=== PATIENT | female | born 1950 | race Caucasian/White ===

== ENCOUNTER 2025-06-08 09:49 | Inpatient (IN) | payer MEDICARE, SELFPAY ==
[2025-06-08] VITALS (21 sets, daily range): BP systolic 98–162; BP diastolic 66–123; BMI 29.6
[2025-06-08 04:50] LABS: Hematocrit 38.5 % (37.0-47.0); Hemoglobin 13.0 g/dL (12.0-16.0); Mean Corp Hgb Conc. 33.8 g/dL (33.0-37.0); Mean Corpuscular Volume 96.0 fL (81.0-99.0); Nucleated Red Blood Cells % 0 %; Platelet Count 252 10^3/uL (130-400); Red Cell Dist. Width 12.8 % (11.5-14.5)
[2025-06-08 05:13] LABS: ALT (SGPT) 26 U/L (0-35); AST (SGOT) 27 U/L (14-36); Albumin 4.4 g/dl (3.5-5.0); Alkaline Phosphatase 81 U/L (38-126); Blood Urea Nitrogen 22 mg/dl (7-17); Calcium 9.9 mg/dl (8.4-10.2); Carbon Dioxide 27 mmol/L (22-30); Chloride 108 mmol/L (98-107); Estimated Creatinine Clearance 86 ml/min; Glucose 102 mg/dl (70-99); Potassium 4.3 mmol/L (3.5-5.1); Sodium 138 mmol/L (135-145); Total Protein 7.0 g/dl (6.3-8.2); eGFR > 60.00
--- NOTE | 2025-06-08 05:29 | ED.GENMED ---
History of Present Illness
General
Chief Complaint: Fall
Source: patient, spouse and ambulance crew
Exam Limitations: none
Time Seen by Provider: 06/08/25 04:08
Nursing documentation reviewed up to this point in time: agreed with
History of Present Illness
History of Present Illness:
This is a 74-year-old woman who resides at home with her . She inadvertently rolled out of bed tonight landing on her left side injuring her left hip. Complains of severe pain left hip, unable to get up or move related to severe left hip
pain. She denies head injury, denies loss of consciousness.
She has history of cervical myelopathy with intermittent cramping of left upper extremity, ambulates with a cane but generally can move about without difficulty and continues to walk her dog on a regular basis. She was planning to undergo cervical
spine surgery within the next 2 months but this has not been scheduled as yet.
She takes no anticoagulants.
She has history of low blood pressure, maintained on midodrine 2.5 mg twice daily.
She was given Tylenol 650 mg prehospital.
Patient reports adverse reaction to opioid medications causing significant nausea.
Past History
Past History
ED Past Medical History: Hypercholesterolemia and Other (Cervical and lumbar DJD. Cervical myelopathy. Hypotension.)
ED Past Surgical History: Orthopedic (Left ankle fracture repair. Lumbar spine surgery 2019.)
Social History
Tobacco: Non-smoker
Alcohol: None
Personal:
Living: with family
Employment: Retired
Family History
Family History: Other (Noncontributory)
Phy Exam
Physical Exam
Physical Exam:
GENERAL: 74-year-old woman appears her stated age, awake and alert, pleasant, appears in no acute distress. is accompanying.
EYE: The head is normocephalic, atraumatic. Pupils equal and reactive. anicteric
NECK: Supple, nontender, no meningismus, no significant adenopathy.
ENT: oral mucosa is moist. No rhinorrhea.
CARDIAC: Regular rate and rhythm. no murmur. No chest wall tenderness.
LUNGS: Clear breath sounds bilaterally, no acute respiratory distress, no wheezes/rales/rhonchi
ABDOMEN: Soft, nondistended, without focal tenderness, no r/g, normoactive BS.
BACK: No midline bony tenderness. No palpable bony pelvic tenderness.
NEUROLOGICAL: Alert and oriented x3, no focal neuro deficits.
SKIN: Warm and dry, normal color, skin intact. No rash.
MUSCULOSKELETAL: No C/C/E. peripheral pulses are full and equal b/l. Moderate tenderness about the left hip and left lower extremity is externally rotated. There is no tenderness to the knee nor lower leg nor thigh.
PSYCH: Normal and appropriate interaction.
Course
Orders/Labs/Results
Orders:
Orders
06/08/25 04:32
Complete Blood Count/With Diff Urgent
Comprehensive Metabolic Panel Urgent
06/08/25 05:11
Hip, Left 2-3 Views [CR Hip - LT w/wo Pel 2-3 Vw*] Urgent
Comment:
Reason For Exam: Fall
Include a pelvis x-ray?: Yes
06/08/25 05:21
Ice Pack-Treatment DIRECTED
Location: LEFT HIP
06/08/25 05:28
0.9% Sodium Chloride 1000 ml [Nss] 1,000 ml IV BOLUS
Ketorolac [Toradol] 15 mg IV NOW STA
06/08/25 05:29
Electrocardiogram (*1) Urgent
Reason for Study: PreOp
EKG- Treatment ONCE
06/08/25 05:34
Ondansetron Injectable [Zofran] 4 mg IV NOW STA
Abnormal Lab Results
06/08/25
04:32
RBC 4.01 L 10^6/uL
(4.20-5.40)
MCH 32.4 H pg
(27.0-31.0)
Absolute Monos (auto) 0.7 H 10^3/uL
(0.1-0.6)
Chloride 108 H mmol/L
(98-107)
BUN 22 H mg/dl
(7-17)
Glucose 102 H mg/dl
(70-99)
06/08/25 04:32
06/08/25 04:32
Vital Signs
Initial and Last Documented VS:
Initial Vital Signs
Temp Pulse Resp BP Pulse Ox
98.3 F 96 13 159/99 96
06/08/25 04:12 06/08/25 04:12 06/08/25 04:12 06/08/25 04:12 06/08/25 04:12
Last Documented Vital Signs
Temp Pulse Resp BP Pulse Ox
98.3 F 101 16 146/82 94
06/08/25 04:12 06/08/25 07:01 06/08/25 07:01 06/08/25 07:01 06/08/25 05:34
MDM/Problems Addressed
Differential Diagnosis Includes:
Significant concern for left hip fracture, other consideration is pelvic fracture, proximal femur fracture.
Will check x-ray left hip/pelvis.
Will trial small IV dose of Toradol. Local ice to left hip.
If ineffective would recommend small IV dose of narcotic pain medication and will give an IV dose of Zofran now to assist with limiting nausea.
Patient has history of cervical as well as lumbar DJD. Denies cervical nor low back pain. No focal neurodeficits. This point no indication for spinal imaging.
*Radiology
Radiology exam reviewed: preliminary read by ED provider (X-ray shows transcervical left hip fracture.)
*Pulse Oximetry
SaO2: 94
Oxygen Mode of Delivery: Room air
Patient hypoxic: no
*EKG
Interpreted by ED Provider?: Yes
Interpretation: normal
Comparison EKG: no comparison EKG present
Rate: normal
Rhythm: sinus
Corona: normal axis
Interval: normal interval
QRS Pattern: normal QRS
Ischemia: no ischemia
*Critical Care Note
Total Time (30-74mins, 75-104mins- exclusive of procedures): Not Applicable
Update Note
Update Note:
07:00
X-ray shows transcervical left hip fracture.
Will plan to admit to hospitalist service, keep NPO.
Will consult orthopedics, Dr Fajardo.
Currently comfortable after small IV dose of Toradol. Will hold off on any further NSAIDs.
ED Attending Note
-
Portions of this chart may have been created with voice recognition software.� Occasional wrong word or��sound alike� substitutions may have occurred due to the inherent limitations of voice recognition software.
Discharge Plan
Departure
Patient Disposition: Admit
Date of Disposition: 06/08/25
Time of Disposition: 06:58
Admit to: Med/Surg
Presentation/result/management discussed w/ accepting MD/DO: Hospitalist
Condition: Fair
Discharge Problem:
acute left hip fracture
Prescriptions:
No Action
atorvastatin 20 mg Tablet
20 mg PO DAILY
ferrous sulfate 325 mg (65 mg iron) Tablet
325 mg PO DAILY
midodrine 2.5 mg Tablet
2.5 mg PO BID
cholecalciferol (vitamin D3) [Vitamin D3] 50 mcg (2,000 unit) Tablet
Caltrate 600 plus D 600 mg-20 mcg (800 unit) Tablet,Chewable
1 tab PO DAILY
Referrals:
Jean Wayne MD [Family Provider, General]
Interventions
Interventions:
*Risk Screen - Suicide Last Done: 06/08/25 04:12
*General Assessment Last Done: 06/08/25 04:12
*Neglect/Abuse Screening Last Done: 06/08/25 04:12
*ED- Fall Risk Assessment Last Done: 06/08/25 04:25
*ED COVID-19 Vaccine History Last Done: 06/08/25 04:25
ED-Musculoskeletal Assessment Last Done: 06/08/25 04:25
ED- Neurological Assessment Last Done: 06/08/25 04:25
ED-Skin Assessment Last Done: 06/08/25 04:25
Discharge Date and Time
Print Language: AZERBAIJANI
[2025-06-08] MEDS: TORADOL 15 MG IV (05:35)
[2025-06-08] MEDS: NSS 1000 IV (05:36)
[2025-06-08] MEDS: ZOFRAN 4 MG IV (05:40)
[2025-06-08] MEDS: MORPHINE SULFATE 2 MG IV (07:19)
--- NOTE | 2025-06-08 07:36 | CON.ORTHO ---
Consultation
-
Date/Time Consultation Requested: 06/08/2025; 0630
Date/Time Consultation Performed: 06/08/2025; 0700
Requesting Provider: Dr. Paris Ralph
Performing Provider: Ann Basilio PA-C
Reason for Consultation: Left femoral neck fracture
Consultation - Orthopedics
History
Ms. Gr is a 74 year old female with PMH of HLD, lumbar fusion, cervical myelopathy seen today for her left hip. She reports she accidentally rolled out of bed. She reports immediate onset of pain following the fall, and was unable to get up
off the ground. She was transported to ED via EMS where x-rays revealed a femoral neck fracture. She is resting comfortably on the stretcher this morning and her is present at the bedside. She reports aching pain about her hip, and has
noticed some radicular symptoms into her foot. She denies pain elsewhere.
She lives with her at home, and they do have stairs. She ambulates with the assistance of a cane at baseline, and reports she walks her dog regularly. She denies PMH of DVT, CVA, WA or DM. She does not take daily blood thinners. She denies
known history of difficulty with anesthesia.
Allergies / Home Medications
Allergy/AdvReac Type Severity Reaction Status Date / Time
Penicillins Allergy Unknown Verified 06/08/25 04:11
�Medication �Instructions �Recorded
atorvastatin 20 mg tablet 20 mg PO DAILY 06/08/25
calcium 600 mg (as carbonate)-vit 1 tab PO DAILY 06/08/25
D3 20 mcg (800 unit) chewable
tablet (Caltrate plus D)
cholecalciferol (vitamin D3) 50 06/08/25
mcg (2,000 unit) tablet (Vitamin
D3)
ferrous sulfate 325 mg (65 mg 325 mg PO DAILY 06/08/25
iron) tablet
midodrine 2.5 mg tablet 2.5 mg PO BID 06/08/25
Vital Signs / Lab Results
Temp Pulse Resp BP Pulse Ox
98.3 F 101 16 146/82 94
06/08/25 04:12 06/08/25 07:01 06/08/25 07:01 06/08/25 07:01 06/08/25 05:34
06/08/25 04:32
06/08/25 04:32
XR Left Hip IMPRESSION:
Fracture, neck, proximal left femur.
Directed exam of the left hip reveals no obvious erythema, ecchymosis, edema or lesions. Mild tenderness about the lateral and anterior hip. ROM deferred secondary to known fracture. Positive log roll. Thigh soft and compressible. Calf soft and
nontender. Patient able to wiggle toes, plantar and dorsiflex ankle. Sensation intact to light touch. Palpable dp and pt pulses.
Assessment / Plan
Left femoral neck fracture
--Unfortunately, Gladys sustained a left femoral neck fracture in her fall. I recommend proceeding with a left hip hemiarthroplasty. The risks, benefits, alternatives, recovery process and potential complications were discussed in detail. She is
interested in proceeding with surgery. Surgical and blood consent is signed and scanned into patient chart. Paper copy at OR desk. Tentative plan to proceed with OR today under the direction of Dr. Fajardo or Dr. Zuleta pending medical clearance.
--NPO until surgery.
--NWB to LLE until surgery.
--Pain control prn. Ice for pain and edema control.
--Abx and irrigation ordered to OR.
--T+S ordered.
--Orthopedics will continue to follow along.
[2025-06-08] MEDS: DILAUDID 1 MG IV ×2 (08:14→12:25)
--- NOTE | 2025-06-08 08:22 | HPS.HSE ---
Addendum entered and electronically signed by Dom Parker MD 06/09/25 22:37:
see update
Original Note:
Family Physician
-
Family Physician: Jean Wayne MD
Chief Complaint
-
Mechanical Fall
History of Present Illness
74 year old female with past medical history of HLD and multiple orthopaedic surgeries with lumbar spinal fusion and cervical myelopathy who presented to the ED after a fall from the bed and subsequent hip pain with ambulatory dysfunction. She
reports going to bed the night prior to admission and waking up on the floor staring at her bed. She was in significant pain and was unable to stand. Her called EMS and they brought her into the emergency department. She reports no loss of
consciousness or use of blood thinners. There was no witnessed seizure like activity, no confusion or neurologic symptoms surrounding the event. Xray imaging done after arival to the ED showed fracture of the neck of the proximal left femur.
Orthopedic surgery was consulted and the patient was set to undergo left hip hemiarthroplasty.
Medical History
Past Medical History
Past Medical History: Reports Hypercholesterolemia
Additional Past Medical History:
Cervical myelopathy
Past Surgical History: Reports Other
Additional Past Surgical History:
Lumbar spinal fusion, podiatric surgery for bone spur removal 2024
Social History
Tobacco: Non-smoker
Alcohol: None
Drug: None
Personal:
Living: With Family
Family History
Family History: Not pertinent
Allergies / Home Medications
Allergies reflects when Allergies were last updated in [facility].
Home Medications with original date entered in [facility]
Allergy/Medication List:
Allergies
Allergy/AdvReac Type Severity Reaction Status Date / Time
Penicillins Allergy Unknown Verified 06/08/25 09:35
Home Medications
atorvastatin 20 mg tablet 20 mg PO DAILY 06/08/25
calcium 600 mg (as carbonate)-vit D3 20 mcg (800 unit) chewable tablet (Caltrate plus D) 1 tab PO DAILY 06/08/25
cholecalciferol (vitamin D3) 25 mcg (1,000 unit) tablet (Vitamin D3) 25 mcg PO DAILY 06/08/25
ferrous sulfate 325 mg (65 mg iron) tablet 325 mg PO DAILY 06/08/25
midodrine 2.5 mg tablet 2.5 mg PO BID 06/08/25
Review of Systems
-
History Source: Patient
A 12 point ROS was completed and negative except as noted: Yes
Constitutional: Reports No Symptoms
EENT: Reports No Symptoms
Respiratory: Reports No Symptoms
Cardiac: Reports No Symptoms
Abdomen/GI: Reports No Symptoms
: Reports No Symptoms
Musculoskeletal: Reports Joint Pain
Skin: Reports No Symptoms
Neurological: Reports No Symptoms
Endocrine: Reports No Symptoms
Hematologic/Lymphatic: Reports No Symptoms
Psych: Reports No Symptoms
Physical Exam
Vital Signs
Vital Signs
Temp Pulse Resp BP Pulse Ox
98.3 F 101 16 150/83 94
06/08/25 04:12 06/08/25 08:00 06/08/25 08:00 06/08/25 08:00 06/08/25 05:34
Physical Exam
General: Well Developed, Well Nourished, No Apparent Distress, Comfortable and Conversant
HEENT: NormoCephalic, Anicteric, Moist mucous membranes, Atraumatic, PERRLA, [place] Conjunctivae, No Ptosis, Nose Appears Normal and Ears Appear Normal
Respiratory: Clear and Non Labored Respirations; No Wheezes, Rales or Rhonchi
Cardiac: S1/S2, Regular Rhythm and Other (Distal pulses intact in the left lower extremity); No Bradycardia, Tachycardia, Murmur or Rub
Breast: Deferred by me
GI: Soft, Non Tender, Non Distended and Normal Bowel Sounds
Rectal: Deferred by Provider
Genito-urinary: Deferred by me
Musculoskeletal: No Clubbing, No Cyanosis, No Edema and Other (No gross abnormalities of the left hip joint on inspection)
Skin: Warm, Dry and IV/Catheter Site
Neuro: AO x 3, No Motor Deficits, Nonfocal/grossly intact, Cranial Nerves Intact and No Sensory Deficits
Hematologic/Lymphatic: No Lymphadenopathy
Psych: Calm
Laboratory Results
-
06/08/25 04:32
06/08/25 04:32
Laboratory Results
Total Bilirubin 0.6 mg/dl (0.2-1.3) 06/08/25 04:32
AST 27 U/L (14-36) 06/08/25 04:32
ALT 26 U/L (0-35) 06/08/25 04:32
Alkaline Phosphatase 81 U/L (38-126) 06/08/25 04:32
Impression/Plan
-
74 year old female with past medical history of HLD and multiple orthopaedic surgeries with lumbar spinal fusion and cervical myelopathy who presented to the ED after a fall from the bed and subsequent hip pain with ambulatory dysfunction.
#Left Hip Fracture, s/p hemiarthroplasty
- fracture of the neck of the proximal left femur on XR
- until then, NPO, non-weight bearing to LLE, pain control
- ortho consulted -- pt to go for hemiarthroplasty today
- Patient has an RCRI risk score of 0
- metabolic equivalents of >4
- Johnson Periop Risk score - 0.2% SIA risk
- patient has acceptable risk for low-intermediate risk procedure for Orthopedic procedure
#Hyperlipidemia
- c/w atorvastatin
#lumbar spinal fusion
#Cervical myelopathy
DVT PPx: SCDs
Code Status: Full Code
--- NOTE | 2025-06-08 11:36 | W.PN.UPDATE ---
Update Note
Progress Note Update
rcri 0, Mets >4 (able to walk up 2 flights of stairs with ease, gardening works, lifts 20lbs + at a time with sonb/cp)
no recents cardiac procedures/surgeries
new score 0.2% rick
acceptable risk for low-intermediate risk procedure with orthopedic surgery
if treating surgeon/anesthesiologist want to proceed for surgery they can
--- NOTE | 2025-06-08 17:37 | W.IMMPOSTOP ---
Surgical Immed Post Op Note
-
Primary Surgeon: Hector Dietz MD
Assisting Surgeon:Adela Hester PA-C
Pre-op Diagnosis: left femoral neck fracture
Post-op Diagnosis: left femoral neck fracture
Procedure Performed: left hip hemiarthroplasty
Anesthesia Type: general
Specimen / Cultures: none
Estimated Blood Loss: 100mL
Complications: none apparent
Operative Findings: left femoral neck fracture
Implants: [employer] Size 13 standard offset stem, 28mm +7 inner bipolar head, 48mm Bipolar outer head
Operative Dictation#: [id number]
[2025-06-08] MEDS: ROXICODONE 5 MG PO (17:43)
[2025-06-08] MEDS: MORPHINE SULFATE 4 MG IV (17:44)
[2025-06-08] MEDS: ASPIRIN 325 MG PO (20:32)
[2025-06-08] MEDS: COLACE 100 MG PO (20:32)
[2025-06-08] MEDS: SENOKOT 17.2 MG PO (20:32)
[2025-06-08] MEDS: BACTROBAN 2% OINTMENT 1 APPLIC NASAL (20:35)
[2025-06-08] MEDS: ANCEF 5 IV (22:12)
[2025-06-08] MEDS: FLUSH (NSS) 2 FLUSH IV (22:12)
[2025-06-09 03:05] VITALS: BP 109/67
[2025-06-09] MEDS: ANCEF 5 IV (06:28)
[2025-06-09] MEDS: FLUSH (NSS) 2 FLUSH IV (06:28)
--- NOTE | 2025-06-09 06:55 | W.PN.ORTHO ---
Today's Communication / Plan
-
PT/OT
Weightbearing as tolerated with walker
Aspirin for DVT prophylaxis
Hip precautions
Patient seems motivated to go home
Follow-up orthopedics 2 weeks postop to check her progress
Assessment
.
Distal Motor Intact: Yes
Dressing:
Clean, dry and intact.
Plan
.
Surgery / Date: L hip evelio 06/08 gonzalo
DVT Prophylaxis: Aspirin
Activity:
Out of bed.
PT/OT
Discharge Plan: Home w/ VN
Subjective
.
.:
Patient resting comfortably.
Vital Signs and Labs
.
Vital Signs and Labs:
Temp Pulse Resp BP Pulse Ox
97.6 F 87 16 109/67 98
06/09/25 03:05 06/09/25 03:05 06/09/25 03:05 06/09/25 03:05 06/09/25 03:05
--- NOTE | 2025-06-09 07:36 | W.PN.HOSP.TC ---
Today's Communication/Plan
-
d/c today with script for home PT
follow up OP with ortho
aspirin ppx
Assessment / Plan
Assessment / Plan
74 year old female with past medical history of HLD and multiple orthopaedic surgeries with lumbar spinal fusion and cervical myelopathy who presented to the ED after a fall from the bed and subsequent hip pain with ambulatory dysfunction.
#Left Hip Fracture, POD 1 L Hip Hemiarthroplasty
- fracture of the neck of the proximal left femur on XR
- Patient has an RCRI risk score of 0
- metabolic equivalents of >4
- Johnson Periop Risk score - 0.2% SIA risk
- PT/OT -- recommending home PT
- weightbearing as tolerated with walker
- OP Ortho follow up in 2 weeks
- rec aspirin 325mg daily for DVT ppx following surgery
#Acute Blood Loss Anemia
- hgb on admission 13, post procedure 10.9. EBL from op report 200ml.
- no acute signs of active bleeding, bruising or hematoma
#Hyperlipidemia
- c/w atorvastatin
#lumbar spinal fusion
#Cervical myelopathy
DVT PPx: SCDs
Code Status: Full Code
Anticipated Discharge: Today
Subjective/Interval History
-
Date of Service: June 09, 2025
Feels well this morning. No acute events overnight, no acute complaints. Has urinated, but has not had a bowel movement or passed gas yet this am. She did not require pain medication overnight. She would like a small dose of pain medication prior to
working with PT.
Objective Data
-
Labs:
Laboratory Results
06/09/25
07:22
WBC Pending
Hgb Pending
Hct Pending
Plt Count Pending
Sodium Pending
Potassium Pending
Chloride Pending
Carbon Dioxide Pending
BUN Pending
Creatinine Pending
Glucose Pending
Calcium Pending
Vital Signs:
Vital Signs
Temp Pulse Resp BP Pulse Ox
97.6 F 87 16 109/67 98
06/09/25 03:05 06/09/25 03:05 06/09/25 03:05 06/09/25 03:05 06/09/25 03:05
Review of Systems
-
History Source: Patient
All other systems: Reviewed and negative
Constitutional: Reports No Symptoms
EENT: Reports No Symptoms Reported
Respiratory: Reports No Symptoms
Cardiac: Reports No Symptoms
Abdomen/GI: Reports No Symptoms
Breast: Reports No Symptoms
Genitourinary: Reports No Symptoms
Musculoskeletal: Reports Joint Pain
Skin: Reports No Symptoms
Neuro: Reports No Symptoms
Endocrine: Reports No Symptoms
Hematologic / Lymphatic: Reports No Symptoms
Physical Exam
-
General: Well Developed, Well Nourished, No Apparent Distress, Comfortable and Conversant
HEENT: Normocephalic, Atraumatic, Moist Mucous Membranes, Anicteric, [place] Conjunctivae, No Ptosis, PERRLA, Nose Appears Normal and Ears Appear Normal
Respiratory: Clear to Auscultation and Non Labored Respirations; Negative Wheezes, Rales or Rhonchi
Cardiac: Regular Rhythm and S1/S2; Negative Murmur, Rub or Gallop
Breast: Deferred by me
GI: Soft, Nontender, Nondistended and Normal Bowel Sounds
Rectal: Deferred by Provider
Genito-urinary: No Costovertebral Tender
Musculoskeletal: No Clubbing, No Cyanosis, No Edema and Other
Skin: Warm, Dry and Other (L hip surgical dressing, clean, dry, intact, without erythema, tenderness or fluctuance )
Neuro: Awake, Alert and Oriented
Psych: Calm
[2025-06-09 07:52] LABS: Hematocrit 33.1 % (37.0-47.0); Hemoglobin 10.9 g/dL (12.0-16.0); Mean Corp Hgb Conc. 32.9 g/dL (33.0-37.0); Mean Corpuscular Volume 98.8 fL (81.0-99.0); Platelet Count 243 10^3/uL (130-400); Red Cell Dist. Width 12.9 % (11.5-14.5)
[2025-06-09] MEDS: CELEBREX 200 MG PO (07:58)
[2025-06-09] MEDS: SENOKOT 17.2 MG PO (07:58)
[2025-06-09] MEDS: LIPITOR 20 MG PO (07:58)
[2025-06-09] MEDS: BACTROBAN 2% OINTMENT 1 APPLIC NASAL (07:58)
[2025-06-09] MEDS: ASPIRIN 325 MG PO (07:58)
[2025-06-09] MEDS: COLACE 100 MG PO (07:58)
[2025-06-09] MEDS: ROXICODONE 2.5 MG PO (08:02)
[2025-06-09 08:18] LABS: Blood Urea Nitrogen 13 mg/dl (7-17); Calcium 8.6 mg/dl (8.4-10.2); Carbon Dioxide 29 mmol/L (22-30); Chloride 108 mmol/L (98-107); Estimated Creatinine Clearance 100 ml/min; Glucose 116 mg/dl (70-99); Potassium 4.1 mmol/L (3.5-5.1); Sodium 137 mmol/L (135-145); eGFR > 60.00
[2025-06-09 10:00] VITALS: BP 110/63; PULSE 86
--- NOTE | 2025-06-09 10:20 | CM ---
CM following re: discharge planning.
Reviewed pt's chart, met with pt and pt's at bedside.
Pt is a 74 year old female, admitted with primary dx of Left Hip Fracture, s/p hemiarthroplasty 06/08/25.
Pt reports she lives with 2SH, 2 steps to enter, has no children, has a dog. Pt reports she ambulates with a cane, known to [facility] and was at [facility] in the past.
PT and OT evaluations noted - home PT/OT recommended. Both pt and her are aware, expressed their agreement and [facility] requested. A referral to [facility] made. Pt's stated that after home PT/OT pt will go to [facility].
According to pt is medically stable to be discharged today. Both pt and her are aware, expressed their agreement and pt's to transport pt home.
IMM reviewed, placed on chart, pt has a copy.
PCP: Theodore Wayne
Pharmacy: [facility]
Please fax discharge instructions to [facility] at [phone]
D/C plan: home with [facility] and family support. to transport.
[2025-06-09 10:26] VITALS: BP 103/70
[2025-06-09 11:46] VITALS: BP 110/63; PULSE 86
--- NOTE | 2025-06-09 14:10 | W.DCSUMMARY ---
Addendum entered and electronically signed by Dom Parker MD 06/09/25 22:38:
Read, reviewed, and agree. See same day progress note for additional details. Time spent coordinating care, DC planning, review of DC plan of care with resident, transition of care, review of records in EMR, med rec, consults, notes, d/w
consultants, nursing, family, and CM
dc bome per pt rec
tolerate surgery well with ortho
More than 30 minutes spent in discharge including
Final examination of the patient
Summarizing hospital stay
Instructions for continuing care to all relevant caregivers
Preparation of discharge records, prescriptions, and referral forms
Original Note:
Discharge Summary
Discharge Data
Date of Admission: 06/08/25
Date of Discharge: 06/09/25
Total time spent discharging patient (in min): >30m
-
Pending Results: No
Hospital Course
Discharging Physician : Dr. Dom Parker
Disposition : Home with Home Care
Primary care physician : Dr. Jean Wayne
Principal Discharge diagnosis : Left Femur Fracture, Left Hip Hemiarthroplasty
Chronic Discharge diagnosis : Hyperlipidemia,
Hospital Course :
74 year old female with past medical history of HLD and multiple orthopaedic surgeries with lumbar spinal fusion and cervical myelopathy who presented to the ED after a fall from the bed and subsequent hip pain with ambulatory dysfunction.
#Left Hip Fracture, POD 1 L Hip Hemiarthroplasty
Patient presented following fall with left hip pain. Hip XR showed fracture of the neck of the proximal left femur. She was assessed pre-operatively with the following: RCRI risk score of 0, metabolic equivalents of >4, and 0.2% SIA risk by Johnson
Periop Risk. Risk for low-intermediate risk orthopedic procedure was deemed acceptable and surgery was completed. Patient tolerated surgery well. She was seen by PT/OT who recommended home health services, set up by case management before discharge.
She is scheduled with Ortho follow up in 2 weeks. She was sent home on 325mg Aspirin for 4 weeks for DVT ppx per Ortho. She was given #10 5mg Oxycodone tablets, with instructions to take one half tab (2.5mg) q4h prn for pain. Medication receipt
confirmed with pharmacy over the phone and relayed to patient. She is to be weightbearing as tolerating to LLE with walker.
#ABLA
Estimated blood loss during the procedure was 200ml. Hgb on admission was 13.0, hgb on discharge 06/09/2025 was 10.9. No active signs of bleeding, bruising or hematoma.
#Hyperlipidemia
She was continued on home dose statin.
Important imaging findings :
CR Hip - LT w/wo Pel 2-3 Vw (06/08/2025):
IMPRESSION:
Fracture, neck, proximal left femur.
CR Hip - LT w/wo Pel 2-3 Vw (06/08/2025):
IMPRESSION:
Postoperative changes of left hip hemiarthroplasty without evidence of hardware complication.
Procedure findings :
None.
Discharge Plan
-
Patient Disposition: Home (Routine Discharge)
Discharge Diagnosis/Procedures: L hip fracture, Left Hip Hemiarthroplasty
Condition: Good
Diet: Regular
Additional Activity: Weightbearing as tolerated with walker
Driving Restrictions: As prior to admission
Bathing Restrictions: None
Referrals:
Hector Dietz MD [Active, Orthopedics]
Referral Note: 2 weeks for post-op check
Jean Wayne MD [Family Provider, General]
Additional Discharge Medication Instructions: Continue taking Aspirin 325mg Daily for blood clot prevention until otherwise instructed by your Orthopedic Surgeon
You may take Tylenol or Ibuprofen OTC as needed for pain. Total daily dose for Tylenol not to exceed 4000mg and total daily dose of Ibuprofen not to exceed 1200mg.
You may take Oxycodone 5mg 1/2 tablet (2.5mg) every four hours as needed for severe pain.
Prescriptions:
New
aspirin 325 mg Tablet
325 mg PO DAILY 30 Days Qty: 30 0RF
oxycodone 5 mg tablet
2.5 mg PO Q6H PRN (Reason: Pain) Qty: 7 0RF
Continued
atorvastatin 20 mg Tablet
20 mg PO DAILY
ferrous sulfate 325 mg (65 mg iron) Tablet
325 mg PO DAILY
midodrine 2.5 mg Tablet
2.5 mg PO BID
Caltrate 600 plus D 600 mg-20 mcg (800 unit) Tablet,Chewable
1 tab PO DAILY
cholecalciferol (vitamin D3) [Vitamin D3] 25 mcg (1,000 unit) Tablet
25 mcg PO DAILY
Discharge Orders:
Discharge Patient (As Directed); Ordered 06/09/25
Ordered By: Dylan Nicolas
Discharge Date and Time
Discharge Date/Time: 06/09/25 13:53
Print Language: MALAWIAN
--- NOTE | 2025-06-09 15:15 | PN.CDI ---
CDI
- -
CDI:
Physician Documentation Request
Admit Date: 06/08/25 09:49
Dear Doctor/Resident,
Please review the following and provide your response in the progress notes.
Clinical Indicators:
Pt admitted with left femoral neck fracture s/p hemiarthroplasty on 06/08
Trended Hemoglobin/Hematocrits below /ESBL 200 ml
06/08/25 06/09/25
04:32 07:22
Hgb 13.0 10.9 L
Hct 38.5 33.1 L
Please provide a diagnosis based on the above laboratory findings:
Acute blood loss anemia
Abnormal lab value only
Other ( please specify)
Use of terms such as suspected, likely, concern for, or probable (associated with a specific diagnosis that is being evaluated, monitored, or treated as if it exists) are acceptable and can be coded in the inpatient setting, when documented at the
time of discharge.
Thank you,
Massiel Berman RN
CDI Specialist
[facility]
Please use your independent medical judgment in providing your response.
== END 2025-06-09 13:53 | disposition home health service (06) | DRG 522 ==
LOC: 2 SOUTH 09:49
PROVIDERS: Student in an Organized Health Care Education/Training Program; ADMITTING PHYSICIAN Hospitalist; EMERGENCY PHYSICIAN Emergency Medicine; FAMILY PHYSICIAN Internal Medicine; OTHER PHYSICIAN Orthopaedic Surgery
PROC: 0SRS0J9 Replacement of Left Hip Joint, Femoral Surface with Synthetic Substitute, Cemented, Open Approach (ICD-10-PCS; 2025-06-08)
DX: S72.032A Displaced midcervical fracture of left femur, initial encounter for closed fracture (principal); D62 Acute posthemorrhagic anemia; M47.12 Other spondylosis with myelopathy, cervical region; W06.XXXA Fall from bed, initial encounter; E78.00 Pure hypercholesterolemia, unspecified; Z88.0 Allergy status to penicillin; Z98.1 Arthrodesis status
CPT/HCPCS: 73502; 80048; 80053; 85025; 85027; 86850; 86900; 86901; 93005; 96361; 96374; 96375; 97116; 97163; 97167; 97530; 97535; 99285